=== PATIENT | male | born 1975 | race African-American/Black ===

== ENCOUNTER 2017-06-01 13:01 | Emergency (ER) | payer SELFPAY ==
[~2017-06-01] VITALS: Ht 172.7 cm; Wt 72.6 kg
[2017-06-01 13:17] VITALS: BP 142/90
[2017-06-01] MEDS ORDERED: VALACYCLOVIR500 MG ORAL (13:19)
[2017-06-01] MEDS ORDERED: PERMETHRIN60 GM TOPIC (13:19)
[2017-06-01 13:51] VITALS: BP 142/96
--- NOTE | 2017-06-01 21:10 | Emergency Room Report ---
History of Present Illness General Chief Complaint: Skin Rash/Abscess Source: Patient Present Illness HPI 41 y/o male c/o possible scabies. States he has itchiness sin the webbings of his hands for the past several days. States he has a hx of scabies in the past and this feels just like that. No provoking or modifying factors. Not taking medication for his sxs. Patient also states he has recurring herpes infections and is requesting medication for outbreak. Denies any current n/v/f/c/d, abd pain, back pain, neck pain, photophobia, phonophobia, CP, SOB or headache. Allergies: Coded Allergies: No Known Allergies (Unverified , 06/01/17) Patient History Past Medical History: see triage record Past Surgical History: none Pertinent Family History: none Immunizations: UTD Reviewed Nursing Documentation: PMH: Agreed, PSxH: Agreed Nursing Documentation-PMH Past Medical History: No History, Except For History Of Psychiatric Problem: Yes Review of Systems All Other Systems: negative except mentioned in HPI Physical Exam Vital Signs Date Time Temp Pulse Resp B/P (MAP) Pulse Ox O2 Delivery O2 Flow Rate FiO2 06/01/17 13:17 97.2 16 142/90 99 Room Air 06/01/17 13:17 87 Sp02 EP Interpretation: reviewed, normal General Appearance: no apparent distress, alert, GCS 15, non-toxic Head: normocephalic, atraumatic Eyes: bilateral eye normal inspection, bilateral eye PERRL ENT: hearing grossly normal, normal pharynx, no angioedema, normal voice, TMs + canals normal Respiratory: chest non-tender, lungs clear, normal breath sounds, speaking full sentences Neurologic: alert, oriented x3, responsive, motor strength/tone normal, sensory intact, speech normal Psychiatric: judgement/insight normal, memory normal, mood/affect normal, no suicidal/homicidal ideation Skin: normal color, warm/dry, well hydrated, other - exoriation and burrows in webbings of bilateral hands. Lymphatic: no adenopathy Medical Decision Making PA Attestation Dr. Mckenzie is my supervising physician with whom patient management has been discussed with. Diagnostic Impression: Primary Impression: Scabies Additional Impressions: Scabies exposure Herpes ER Course Pt. presents to the ED c/o rash Ddx considered but are not limited to dermatitis, insect sting, viral exanthem, herpez zoster, cellulitis, abscess Vital signs: are WNL, pt. is afebrile H&PE are most consistent with scabies ORDERS: none required at this time, the diagnosis is clinical ED INTERVENTIONS: none required at this time. DISCHARGE: At this time pt. is stable for d/c to home. Will provide printed patient care instructions, and any necessary prescriptions. Care plan and follow up instructions have been discussed with the patient prior to discharge. Last Vital Signs Date Time Temp Pulse Resp B/P (MAP) Pulse Ox O2 Delivery O2 Flow Rate FiO2 06/01/17 13:51 87 16 142/96 99 Room Air 06/01/17 13:17 97.2 Disposition: HOME, SELF-CARE Condition: Stable Scripts Valacyclovir Hcl* (VALTREX*) 500 Mg Tablet 1000 MG ORAL TWICE A DAY for 10 Days, #20 TAB Prov: THU TOURE 06/01/17 Permethrin* (ELIMITE*) 60 Gm Cream..g. 1 APPLIC TOPIC ONCE, #60 GM 0 Refills Apply cream from head to toe; leave on for 8-14 hours before washing off with water; may reapply in 1 week if live mites appear. Prov: THU TOURE 06/01/17 Referrals: NOT CHOSEN IPA/,REFERRING (PCP) Patient Instructions: Herpes Labialis, Scabies, Pediatric THU TOURE Jun 01, 2017 21:10
== END 2017-06-01 13:51 | disposition home or self-care (01) ==
LOC: EMR 13:36
DX: B86 Scabies (principal); B00.9 Herpesviral infection, unspecified
CPT/HCPCS: 99284